=== PATIENT | female | born 1950 | race Caucasian/White ===

== ENCOUNTER 2018-05-01 10:30 | Emergency (ER) | payer OTHER ==
[2018-05-01] MEDS: SOD CHLORIDE 0.9% 1,000 ML IV (11:24)
[2018-05-01] MEDS: DEXAMETHASONE 10 MG/ML 1 ML INJ IV (11:25)
[2018-05-01] MEDS: KETOROLAC 30 MG INJ IV (11:25)
[2018-05-01 11:30] LABS: ADD MAN DIFF? NO
[2018-05-01 11:42] LABS: WHITE BLOOD COUNT 7.8 10^3/ul (4.8-10.8)
[2018-05-01 11:42] LABS: BASOPHIL # 0.1 10^3/ul (0.0-0.1); BASOPHILS % 0.8 % (0.0-2.0); EOSINOPHILS # 0.4 10^3/ul (0.0-0.5); EOSINOPHILS % 5.2 % (0.0-7.0); HEMATOCRIT 41.7 % (37.0-47.0); HEMOGLOBIN 13.7 g/dl (12.0-16.0); LYMPHOCYTES # 3.3 10^3/ul (0.8-2.9); LYMPHOCYTES % 42.5 % (15.0-51.0); MEAN CORPUSCULAR HEMOGLOBIN 32.1 pg (29.0-33.0); MEAN CORPUSCULAR HGB CONC 32.9 g/dl (32.0-37.0); MEAN CORPUSCULAR VOLUME 97.7 fl (82.0-101.0); MEAN PLATELET VOLUME 9.1 fl (7.4-10.4); MONOCYTE # 0.8 10^3/ul (0.3-0.9); MONOCYTES % 9.9 % (0.0-11.0); NEUTROPHIL # 3.2 10^3/ul (1.6-7.5); PLATELET COUNT 222 10^3/UL (140-415); RED BLOOD COUNT 4.27 10^6/ul (4.20-5.40); RED CELL DISTRIBUTION WIDTH 12.8 % (11.5-14.5)
[2018-05-01 12:06] LABS: ADD UMIC YES; UR ASCORBIC ACID NEGATIVE (NEGATIVE); UR BILIRUBIN (Dip) 1+ mg/dL (NEGATIVE); UR BLOOD (Dip) NEGATIVE (NEGATIVE); UR CALCIUM OXALATE CRYSTAL MANY /HPF (NONE SEEN); UR CLARITY SLIGHTLY CLOUDY (CLEAR); UR COLOR AMBER (YELLOW); UR GLUCOSE (Dip) NEGATIVE (NEGATIVE); UR KETONES (Dip) TRACE mg/dL (NEGATIVE); UR LEUKOCYTE ESTERASE (Dip) NEGATIVE Leu/ul (NEGATIVE); UR MUCUS MANY /HPF (NONE SEEN); UR NITRITE (Dip) NEGATIVE (NEGATIVE); UR RBC 5 /HPF (0-5); UR SPECIFIC GRAVITY (Dip) 1.027 (1.003-1.030); UR SQUAMOUS EPITHELIAL CELL FEW /HPF (FEW); UR TOTAL PROTEIN (Dip) 1+ mg/dl (NEGATIVE); UR UROBILINOGEN (Dip) 1+ mg/dL (NEGATIVE); UR WBC 2 /HPF (0-5)
[2018-05-01 12:09] LABS: ALANINE AMINOTRANSFERASE 41 IU/L (13-69); ALBUMIN 3.7 g/dl (3.3-4.9); ALBUMIN/GLOBULIN RATIO 1.08; ALKALINE PHOSPHATASE 84 IU/L (42-121); ANION GAP 12 (8-16); ASPARTATE AMINO TRANSFERASE 29 IU/L (15-46); BILIRUBIN,INDIRECT 0.7 mg/dl (0-1.1); BILIRUBIN,TOTAL 0.7 mg/dl (0.2-1.3); BLOOD UREA NITROGEN 17 mg/dl (7-20); CALCIUM 9.5 mg/dl (8.4-10.2); CARBON DIOXIDE 26 mmol/L (21-31); CHLORIDE 106 mmol/L (97-110); CREATININE 0.61 mg/dl (0.44-1.00); GLUCOSE 154 mg/dl (70-220); LIPASE 93 U/L (23-300); SODIUM 140 mmol/L (135-144); TOTAL PROTEIN 7.1 g/dl (6.1-8.1)
[2018-05-01] MEDS: IPRATROPIUM (NEB) 0.5 MG/2.5 ML AMP NEB (12:56)
[2018-05-01] MEDS: ALBUTEROL 0.083% (NEB) 2.5 MG/3 ML AMP NEB (12:56)
== END 2018-05-01 13:30 | disposition home or self-care (01) ==
LOC: FTE 10:30
DX: R05 Cough (principal); R42 Dizziness and giddiness; R50.9 Fever, unspecified; F17.210 Nicotine dependence, cigarettes, uncomplicated; E11.9 Type 2 diabetes mellitus without complications; Z79.84 Long term (current) use of oral hypoglycemic drugs
CPT/HCPCS: 71045; 80053; 81001; 83690; 85025; 87400; 94664; 96361; 96374; 96375; 99284-25

== ENCOUNTER 2018-07-27 11:58 | Emergency (ER) | payer OTHER ==
[2018-07-27] MEDS: DIPHENHYDRAMINE 25 MG CAP PO (13:16)
[2018-07-27] MEDS: predniSONE 20 MG TAB PO (13:17)
== END 2018-07-27 14:26 | disposition home or self-care (01) ==
LOC: FTE 11:58
DX: R21 Rash and other nonspecific skin eruption (principal); F17.210 Nicotine dependence, cigarettes, uncomplicated; I10 Essential (primary) hypertension
CPT/HCPCS: 99283; J7512

== ENCOUNTER 2018-08-29 16:57 | Emergency (ER) | payer OTHER ==
[2018-08-29] MEDS: DEXAMETHASONE 10 MG/ML 1 ML INJ IM (18:25)
== END 2018-08-29 18:48 | disposition home or self-care (01) ==
LOC: FTE 16:57
DX: R21 Rash and other nonspecific skin eruption (principal); I10 Essential (primary) hypertension; Z87.891 Personal history of nicotine dependence
CPT/HCPCS: 96372; 99284-25; J1100

== ENCOUNTER 2018-12-28 07:36 | Inpatient (IN) | payer OTHER ==
[2018-12-28] MEDS: VANCOMYCIN 1 GM (PMX) 250 ML IVPB (08:00)
[2018-12-28] MEDS: CEFEPIME 2GM/50 ML (PMX) 50 ML IVPB (08:03)
[2018-12-28] MEDS: SODIUM CHLORIDE 0.9% 1L BAG IV* (08:03)
[2018-12-28] MEDS: ACETAMINOPHEN 500 MG TAB PO (08:05)
[2018-12-28 08:06] LABS: ADD MAN DIFF? NO
[2018-12-28 08:11] LABS: WHITE BLOOD COUNT 13.4 10^3/ul (4.8-10.8)
[2018-12-28 08:11] LABS: BASOPHILS % 0.2 % (0.0-2.0); EOSINOPHILS % 0.1 % (0.0-7.0); HEMATOCRIT 40.2 % (37.0-47.0); HEMOGLOBIN 13.4 g/dl (12.0-16.0); LYMPHOCYTES # 2.1 10^3/ul (0.8-2.9); LYMPHOCYTES % 15.5 % (15.0-51.0); MEAN CORPUSCULAR HEMOGLOBIN 30.2 pg (29.0-33.0); MEAN CORPUSCULAR HGB CONC 33.3 g/dl (32.0-37.0); MEAN CORPUSCULAR VOLUME 90.7 fl (82.0-101.0); MONOCYTE # 1.1 10^3/ul (0.3-0.9); NEUTROPHIL # 10.2 10^3/ul (1.6-7.5); NEUTROPHILS % 75.8 % (39.0-77.0); PLATELET COUNT 231 10^3/UL (140-415); RED BLOOD COUNT 4.43 10^6/ul (4.20-5.40); RED CELL DISTRIBUTION WIDTH 12.9 % (11.5-14.5)
[2018-12-28 08:28] LABS: ALANINE AMINOTRANSFERASE 21 IU/L (13-69); ALBUMIN 4.2 g/dl (3.3-4.9); ALBUMIN/GLOBULIN RATIO 1.13; ALKALINE PHOSPHATASE 103 IU/L (42-121); ANION GAP 12 (5-13); ASPARTATE AMINO TRANSFERASE 21 IU/L (15-46); BILIRUBIN,INDIRECT 0.6 mg/dl (0-1.1); BILIRUBIN,TOTAL 0.6 mg/dl (0.2-1.3); BLOOD UREA NITROGEN 21 mg/dl (7-20); CALCIUM 9.1 mg/dl (8.4-10.2); CARBON DIOXIDE 23 mmol/L (21-31); CHLORIDE 105 mmol/L (97-110); CREATININE 0.61 mg/dl (0.44-1.00); Estimated GFR > 60 mL/min (>60); GLUCOSE 137 mg/dl (70-220); POTASSIUM 4.1 mmol/L (3.5-5.1); SODIUM 140 mmol/L (135-144); TOTAL PROTEIN 7.9 g/dl (6.1-8.1)
[2018-12-28 08:36] LABS: INR 1.07; PT RATIO 1.1
[2018-12-28 08:37] LABS: PARTIAL THROMBOPLASTIN TIME 31.6 Sec (23.0-35.0)
[2018-12-28 08:40] LABS: TROPONIN-I < 0.012 ng/ml (0.000-0.120)
[2018-12-28 08:42] LABS: ADD UMIC YES; UR ASCORBIC ACID 40 mg/dL (NEGATIVE); UR BILIRUBIN (Dip) NEGATIVE (NEGATIVE); UR BLOOD (Dip) NEGATIVE (NEGATIVE); UR CLARITY TURBID (CLEAR); UR COLOR AMBER (YELLOW); UR GLUCOSE (Dip) NEGATIVE (NEGATIVE); UR KETONES (Dip) TRACE mg/dL (NEGATIVE); UR LEUKOCYTE ESTERASE (Dip) NEGATIVE Leu/ul (NEGATIVE); UR MUCUS MANY /HPF (NONE SEEN); UR NITRITE (Dip) NEGATIVE (NEGATIVE); UR RBC 8 /HPF (0-5); UR SPECIFIC GRAVITY (Dip) 1.036 (1.003-1.030); UR TOTAL PROTEIN (Dip) 2+ mg/dl (NEGATIVE); UR UROBILINOGEN (Dip) NEGATIVE (NEGATIVE); UR WBC 0 /HPF (0-5)
[2018-12-28] MEDS ORDERED: ACETAMINOPHEN 325 MG TAB PO (11:00)
[2018-12-28] MEDS ORDERED: ONDANSETRON 4 MG INJ IV ×2 (11:00→12:00)
[2018-12-28] MEDS ORDERED: MAGNESIUM HYDROXIDE 30ML CUP PO (12:00)
[2018-12-28] MEDS ORDERED: NACL 0.9% 3 ML SYG IV (12:00)
[2018-12-28] MEDS ORDERED: hydrOXYzine HCL 25 MG TAB PO (12:00)
[2018-12-28] MEDS ORDERED: DOCUSATE SODIUM 100 MG CAP PO (12:00)
[2018-12-28] MEDS ORDERED: ALBUTEROL 0.083% (NEB) 2.5 MG/3 ML AMP NEB (12:00)
[2018-12-28] MEDS ORDERED: CEPASTAT LOZENGE MT (12:00)
[2018-12-28] MEDS: AZITHROMYCIN 500MG/NS (PMX) 250 ML IV ×2 (12:00→17:57)
[2018-12-28 12:04] LABS: HEMOGLOBIN A1C 5.7 % (0-5.9)
[2018-12-28 12:07] LABS: LACTIC ACID 1.2 mmol/L (0.5-2.0)
[2018-12-28] MEDS ORDERED: GLUCOSE GEL 15 GRAM TUBE PO ×2 (13:00)
[2018-12-28] MEDS ORDERED: DEXTROSE 50% 50 ML SYRINGE IV ×2 (13:00)
[2018-12-28] MEDS ORDERED: GLUCAGON 1 MG INJ IM (13:00)
[2018-12-28] MEDS ORDERED: GLUCOSE GEL 15 GRAM TUBE BUCCAL (13:00)
[2018-12-28] MEDS: INSULIN ASPART [NOVOLOG] 3 ML PEN SC ×3 (13:10→20:25)
[2018-12-28] MEDS: CEFTRIAXONE 1 GM/50 ML (PMX) 50 ML IVPB (15:54)
[2018-12-28] MEDS: ACETAMINOPHEN 325 MG TAB PO ×2 (15:55→22:03)
[2018-12-28] MEDS: GUAIFENESIN/DM 5ML CUP PO (18:04)
[2018-12-28] MEDS: NICOTINE (14 MG/24 HR) PATCH TRANSDERM (18:04)
[2018-12-28] MEDS: FAMOTIDINE 20 MG TAB PO (20:24)
[2018-12-28] MEDS: ATORVASTATIN 10 MG TAB PO (20:24)
[2018-12-28] MEDS: ALBUTEROL 0.083% (NEB) 2.5 MG/3 ML AMP NEB (21:19)
[2018-12-29] MEDS: ALBUTEROL 0.083% (NEB) 2.5 MG/3 ML AMP NEB ×3 (07:48→20:56)
[2018-12-29 08:13] LABS: ADD MAN DIFF? NO
[2018-12-29 08:23] LABS: WHITE BLOOD COUNT 10.6 10^3/ul (4.8-10.8)
[2018-12-29 08:23] LABS: BASOPHILS % 0.3 % (0.0-2.0); EOSINOPHILS % 0.1 % (0.0-7.0); HEMATOCRIT 38.6 % (37.0-47.0); HEMOGLOBIN 12.8 g/dl (12.0-16.0); LYMPHOCYTES # 2.3 10^3/ul (0.8-2.9); LYMPHOCYTES % 21.5 % (15.0-51.0); MEAN CORPUSCULAR HEMOGLOBIN 30.2 pg (29.0-33.0); MEAN CORPUSCULAR HGB CONC 33.2 g/dl (32.0-37.0); MONOCYTE # 0.9 10^3/ul (0.3-0.9); MONOCYTES % 8.3 % (0.0-11.0); NEUTROPHIL # 7.3 10^3/ul (1.6-7.5); NEUTROPHILS % 69.5 % (39.0-77.0); PLATELET COUNT 218 10^3/UL (140-415); RED BLOOD COUNT 4.24 10^6/ul (4.20-5.40)
[2018-12-29] MEDS: LOSARTAN 50 MG TAB PO (08:35)
[2018-12-29] MEDS: FAMOTIDINE 20 MG TAB PO ×2 (08:35→20:14)
[2018-12-29] MEDS: NICOTINE (14 MG/24 HR) PATCH TRANSDERM (08:35)
[2018-12-29] MEDS: INSULIN ASPART [NOVOLOG] 3 ML PEN SC ×4 (08:38→20:18)
[2018-12-29] MEDS: ENOXAPARIN 40 MG/0.4 ML SYG SC (08:42)
[2018-12-29] MEDS: ACETAMINOPHEN 325 MG TAB PO ×3 (08:43→23:44)
[2018-12-29 08:44] LABS: ANION GAP 10 (5-13); BLOOD UREA NITROGEN 11 mg/dl (7-20); CALCIUM 8.7 mg/dl (8.4-10.2); CARBON DIOXIDE 24 mmol/L (21-31); CHLORIDE 106 mmol/L (97-110); CREATININE 0.53 mg/dl (0.44-1.00); Estimated GFR > 60 mL/min (>60); GLUCOSE 130 mg/dl (70-220); MAGNESIUM 1.9 mg/dl (1.7-2.5); POTASSIUM 3.7 mmol/L (3.5-5.1); SODIUM 140 mmol/L (135-144)
[2018-12-29] MEDS: LEVOFLOXACIN 750MG/D5W (PMX) 150 ML IVPB (08:56)
[2018-12-29] MEDS: GUAIFENESIN/DM 5ML CUP PO (17:03)
[2018-12-29] MEDS: AZITHROMYCIN 500MG/NS (PMX) 250 ML IVPB (17:03)
[2018-12-29] MEDS: ATORVASTATIN 10 MG TAB PO (20:14)
[2018-12-30 06:24] LABS: ADD MAN DIFF? NO
[2018-12-30 06:29] LABS: BASOPHILS % 0.2 % (0.0-2.0); EOSINOPHILS # 0.3 10^3/ul (0.0-0.5); EOSINOPHILS % 2.5 % (0.0-7.0); HEMATOCRIT 37.5 % (37.0-47.0); HEMOGLOBIN 12.6 g/dl (12.0-16.0); LYMPHOCYTES # 2.4 10^3/ul (0.8-2.9); LYMPHOCYTES % 23.5 % (15.0-51.0); MEAN CORPUSCULAR HEMOGLOBIN 30.2 pg (29.0-33.0); MEAN CORPUSCULAR HGB CONC 33.6 g/dl (32.0-37.0); MEAN CORPUSCULAR VOLUME 89.9 fl (82.0-101.0); MEAN PLATELET VOLUME 9.1 fl (7.4-10.4); MONOCYTES % 10.2 % (0.0-11.0); NEUTROPHIL # 6.4 10^3/ul (1.6-7.5); NEUTROPHILS % 63.3 % (39.0-77.0); PLATELET COUNT 227 10^3/UL (140-415); RED BLOOD COUNT 4.17 10^6/ul (4.20-5.40); RED CELL DISTRIBUTION WIDTH 12.8 % (11.5-14.5)
[2018-12-30 06:29] LABS: WHITE BLOOD COUNT 10.1 10^3/ul (4.8-10.8)
[2018-12-30 07:02] LABS: ALBUMIN 3.7 g/dl (3.3-4.9); ANION GAP 7 (5-13); BLOOD UREA NITROGEN 11 mg/dl (7-20); CARBON DIOXIDE 24 mmol/L (21-31); CHLORIDE 107 mmol/L (97-110); CREATININE 0.57 mg/dl (0.44-1.00); GLUCOSE 155 mg/dl (70-220); MAGNESIUM 2.1 mg/dl (1.7-2.5); PHOSPHORUS 3.3 mg/dl (2.5-4.9); POTASSIUM 3.5 mmol/L (3.5-5.1); SODIUM 138 mmol/L (135-144)
[2018-12-30] MEDS: ALBUTEROL 0.083% (NEB) 2.5 MG/3 ML AMP NEB ×3 (07:37→19:40)
[2018-12-30] MEDS: INSULIN ASPART [NOVOLOG] 3 ML PEN SC ×4 (07:55→21:00)
[2018-12-30] MEDS: FAMOTIDINE 20 MG TAB PO ×2 (09:00→21:37)
[2018-12-30] MEDS: NICOTINE (14 MG/24 HR) PATCH TRANSDERM (09:25)
[2018-12-30] MEDS: LEVOFLOXACIN 750MG/D5W (PMX) 150 ML IVPB (09:25)
[2018-12-30] MEDS: LOSARTAN 50 MG TAB PO (09:26)
[2018-12-30] MEDS: ENOXAPARIN 40 MG/0.4 ML SYG SC (09:42)
[2018-12-30] MEDS: POTASSIUM CHLORIDE (SR) 20 MEQ TAB PO (10:09)
[2018-12-30] MEDS: GUAIFENESIN/DM 5ML CUP PO (20:27)
[2018-12-30] MEDS: ATORVASTATIN 10 MG TAB PO (21:07)
[2018-12-30] MEDS: ACETAMINOPHEN 325 MG TAB PO (21:08)
[2018-12-31] MEDS: LEVOFLOXACIN 750 MG TABLET PO (05:50)
[2018-12-31 06:06] LABS: ADD MAN DIFF? NO
[2018-12-31 06:08] LABS: BASOPHILS % 0.5 % (0.0-2.0); EOSINOPHILS # 0.8 10^3/ul (0.0-0.5); EOSINOPHILS % 10.9 % (0.0-7.0); HEMATOCRIT 35.3 % (37.0-47.0); HEMOGLOBIN 11.6 g/dl (12.0-16.0); LYMPHOCYTES # 2.5 10^3/ul (0.8-2.9); LYMPHOCYTES % 33.6 % (15.0-51.0); MEAN CORPUSCULAR HEMOGLOBIN 30.1 pg (29.0-33.0); MEAN CORPUSCULAR HGB CONC 32.9 g/dl (32.0-37.0); MEAN CORPUSCULAR VOLUME 91.5 fl (82.0-101.0); MONOCYTE # 0.8 10^3/ul (0.3-0.9); MONOCYTES % 10.6 % (0.0-11.0); NEUTROPHIL # 3.3 10^3/ul (1.6-7.5); NEUTROPHILS % 44.1 % (39.0-77.0); PLATELET COUNT 242 10^3/UL (140-415); RED BLOOD COUNT 3.86 10^6/ul (4.20-5.40); RED CELL DISTRIBUTION WIDTH 12.8 % (11.5-14.5)
[2018-12-31 06:08] LABS: WHITE BLOOD COUNT 7.6 10^3/ul (4.8-10.8)
[2018-12-31 06:31] LABS: ALBUMIN 3.3 g/dl (3.3-4.9); ANION GAP 7 (5-13); BLOOD UREA NITROGEN 14 mg/dl (7-20); CARBON DIOXIDE 24 mmol/L (21-31); CHLORIDE 111 mmol/L (97-110); CREATININE 0.49 mg/dl (0.44-1.00); GLUCOSE 122 mg/dl (70-220); MAGNESIUM 2.1 mg/dl (1.7-2.5); PHOSPHORUS 4.1 mg/dl (2.5-4.9); POTASSIUM 4.3 mmol/L (3.5-5.1); SODIUM 142 mmol/L (135-144)
[2018-12-31] MEDS: ALBUTEROL 0.083% (NEB) 2.5 MG/3 ML AMP NEB (07:16)
[2018-12-31] MEDS: INSULIN ASPART [NOVOLOG] 3 ML PEN SC ×2 (07:45→11:50)
[2018-12-31] MEDS: LOSARTAN 50 MG TAB PO (08:14)
[2018-12-31] MEDS: AZITHROMYCIN 250 MG TAB PO (08:16)
[2018-12-31] MEDS: FAMOTIDINE 20 MG TAB PO (08:16)
[2018-12-31] MEDS: NICOTINE (14 MG/24 HR) PATCH TRANSDERM (08:16)
[2018-12-31] MEDS: ENOXAPARIN 40 MG/0.4 ML SYG SC (08:29)
== END 2018-12-31 11:50 | disposition home or self-care (01) | DRG 871 ==
LOC: E/R 07:36 → TEL 10:51
PROVIDERS: Internal Medicine
DX: A41.9 Sepsis, unspecified organism (principal); J18.9 Pneumonia, unspecified organism; E11.9 Type 2 diabetes mellitus without complications; I10 Essential (primary) hypertension; F17.200 Nicotine dependence, unspecified, uncomplicated; Z79.84 Long term (current) use of oral hypoglycemic drugs
CPT/HCPCS: 36415; 71045; 80048; 80053; 80069; 81001; 82962; 83036; 83605; 83735; 84484; 85025; 85610; 85730; 87040-91; 87086; 93005; 94640; 94664; 96374; 96375; 97165; 99285-25